=== PATIENT | male | born 1950 | race Caucasian/White ===

== ENCOUNTER 2016-11-24 15:04 | Observation (INO) | payer OTHER ==
[~2016-11-24] VITALS: Ht 177.8 cm; Wt 108.8 kg
[~2016-11-24 15:04] MED LIST: ALBUTEROL SULF8.5 GM IH; ASPIR 8181 M1 PO; Aspirin E.C. PO; Cardizem CD,Cartia X PO; DILTIAZEM HCL360 MG PO; FUROSEMIDE40 MG PO; Lopressor PO; METOPROLOL TART50 MG PO; MORGIDOX100 MG PO; MYCOPHENOLATE500 MG PO; OMEPRAZOLE40 M1 PO; ONE DAILY TABL1 EAC1 PO; PREDNISONE20 MG PO; SIMVASTATIN20 MG PO; SPIRIVA1 INHALATI IH; SYNTHROID100 MCG PO; XARELTO20 MG PO; Xarelto PO
[2016-11-24 16:20] LABS: HEMATOCRIT 43.9 % (38.0-50.0); MCH 31.5 PG (29.0-34.0); MCHC 34.9 G/DL (30.0-36.0); MCV 90.3 FL (86-99); MEAN PLAT.VOLUME 9.8 uM^3 (9.0-12.4); PLATELET COUNT 217 K/uL (156-360); RBC DIS.WIDTH-CV 12.6 % (11.8-14.6); RBC DIS.WIDTH-SD 41.9 % (39-53); RED BLOOD COUNT 4.86 M/uL (4.00-5.50); WHITE BLOOD COUNT 6.3 K/uL (4.1-10.2)
[2016-11-24 16:28] LABS: CHLORIDE 105 mEq/L (99-109); POTASSIUM 4.3 mEq/L (3.7-5.4); SODIUM 139 mEq/L (136-147)
[2016-11-24 16:30] LABS: GLUCOSE 95 mg/dL (70-99)
[2016-11-24 16:31] LABS: ANION GAP 10 MEQ/L (2-14)
[2016-11-24 16:34] LABS: GFR ESTIMATE (CALCULATED) > 59 mL/min/
[2016-11-24 16:35] LABS: UREA NITROGEN (BUN) 18 mg/dL (9-23)
[2016-11-24 16:40] LABS: TROP-I INTERPRETATION NEGATIVE; TROPONIN-I < 0.01 ng/mL (0.0-0.30)
[2016-11-24 19:18] LABS: TOTAL BILIRUBIN 0.4 mg/dL (0.0-1.0)
[2016-11-24 19:19] LABS: ALKALINE PHOSPHATASE 79 IU/L (3-129)
[2016-11-24 19:22] LABS: DIRECT BILIRUBIN 0.2 mg/dL (0.0-0.3)
[2016-11-24 19:23] LABS: LIPASE 24 U/L (1.0-51.0)
[2016-11-24] MEDS ORDERED: VIAGRA100 MG PO (19:37)
[2016-11-24] MEDS ORDERED: ONE DAILY FOR1 EAC2 PO (19:38)
[2016-11-24] MEDS ORDERED: EXCEDRIN MIGRA1 EAC3 PO (19:38)
[2016-11-24] MEDS ORDERED: BUTALB-APAP-CA1 EACH PO (19:39)
[2016-11-24] MEDS ORDERED: NEXIUM40 MG PO (19:40)
[2016-11-24] MEDS ORDERED: LOPRESSOR25 MG PO (19:41)
[2016-11-24] MEDS ORDERED: SYNTHROID112 MCG PO (19:46)
[2016-11-24 21:01] VITALS: BP 137/80
[2016-11-24 23:00] LABS: TROP-I INTERPRETATION NEGATIVE; TROPONIN-I < 0.01 ng/mL (0.0-0.30)
[2016-11-24 23:42] VITALS: BP 118/72
[2016-11-25 04:07] VITALS: BP 125/80
[2016-11-25 05:46] LABS: TROP-I INTERPRETATION NEGATIVE; TROPONIN-I < 0.01 ng/mL (0.0-0.30)
[2016-11-25 09:50] VITALS: BP 111/74
[2016-11-25 12:00] VITALS: BP 128/80
== END 2016-11-25 12:10 | disposition home or self-care (01) ==
LOC: EME 15:04 → 5WEST 18:44 → EDOF 18:44 → ENRESERV 18:45 → 5WEST 20:51
PROVIDERS: Hospitalist
DX: R07.9 Chest pain, unspecified (principal); I25.10 Atherosclerotic heart disease of native coronary artery without angina pectoris; I48.0 Paroxysmal atrial fibrillation; E11.9 Type 2 diabetes mellitus without complications; G47.33 Obstructive sleep apnea (adult) (pediatric); E66.9 Obesity, unspecified; J44.9 Chronic obstructive pulmonary disease, unspecified; E03.9 Hypothyroidism, unspecified; K22.70 Barrett's esophagus without dysplasia; E78.5 Hyperlipidemia, unspecified; K21.9 Gastro-esophageal reflux disease without esophagitis; N40.0 Benign prostatic hyperplasia without lower urinary tract symptoms; Z79.82 Long term (current) use of aspirin; Z87.891 Personal history of nicotine dependence; Z82.49 Family history of ischemic heart disease and other diseases of the circulatory system; Z80.3 Family history of malignant neoplasm of breast; Z80.6 Family history of leukemia; Z80.7 Family history of other malignant neoplasms of lymphoid, hematopoietic and related tissues; Z83.3 Family history of diabetes mellitus
CPT/HCPCS: 71020; 80048; 80076; 83690; 84484; 85027; 85379; 93005; 94640 76; 99202; 99281; 99285; G0378